=== PATIENT | female | born 1985 | race American Indian/Alaskan Native ===

== ENCOUNTER 2020-12-24 14:55 | Emergency (ER) | payer MEDICAID, OTHER ==
[2020-12-24] MEDS ORDERED: NALOXONE 2 MG/2 ML INJ ONE (15:00)
[2020-12-24] MEDS ORDERED: SODIUM BICARB 8.4% 50 MEQ/50 ML SYRINGE IV ONE (15:00)
[2020-12-24] MEDS ORDERED: EPINEPHrine 1 MG/10 ML SYRINGE ONE (15:00)
[2020-12-24] MEDS ORDERED: DEXTROSE 50% IN WATER (25GM) 50 ML VIAL IV ONE (15:00)
--- NOTE | 2020-12-24 15:04 | Emergency Department Report ---
ED CPR HPI - General Stated Complaint: CA Time Seen by Provider: 12/24/20 14:59 - History of Present Illness Initial Comments: Patient was brought in by ambulance for cardiac arrest. History is obtained from EMS. History cannot be obtained for the patient because she is intubated and CPR is in progress. The significant other called EMS because the patient was found down and unresponsive. The downtime was unknown. She was reportedly last seen about 1300. It is approximately 1445 when the patient arrives. CPR is in progress. EMS had intubated the patient. They had administered epinephrine. They had not administered glucose, Narcan, or any other medications. They did not visualize any sign of trauma at the scene. They did not have any clear history of the patient. - Related Data Previous Rx's Medication Instructions Recorded Last Taken Type HYDROcodone/APAP 10-325 [[place] 1 each PO Q6HR PRN #16 tablet 09/04/13 Unknown Rx 10-325 mg TAB] Ibuprofen [Motrin 800 MG tab] 800 mg PO Q8H PRN #30 tablet 09/04/13 Unknown Rx Allergies Allergy/AdvReac Type Severity Reaction Status Date / Time No Known Allergies Allergy Verified 09/04/13 22:39 ED Review of Systems ROS: Stated complaint: CA Other details as noted in HPI Comment: Unobtainable due to pts medical conditions (Cardiac arrest) ED Past Medical Hx - Past Medical History Hx Headaches / Migraines: Yes Additional medical history: Right ankle injury. cannot be obtained from the patient secondary to cardiac arrest - Surgical History Additional Surgical History: 2 , Cyst removed from neck. cannot be obtained from the patient secondary to cardiac arrest - Family History Family history: other ( cannot be obtained from the patient secondary to cardiac arrest) - Social History Smoking Status: Current Every Day Smoker Substance Use Type: Alcohol, Marijuana, Non Opiate Pain Other Social History: cannot be obtained for the patient secondary to cardiac arrest - Medications Home Medications: Home Medications Medication Instructions Recorded Confirmed Last Taken Type HYDROcodone/APAP 10-325 [[place] 1 each PO Q6HR PRN #16 tablet 09/04/13 Unknown Rx 10-325 mg TAB] Ibuprofen [Motrin 800 MG tab] 800 mg PO Q8H PRN #30 tablet 09/04/13 Unknown Rx ED Physical Exam - General Limitations: Physical Limitation, Other ( cardiac arrest) General appearance: other ( patient is in cardiac arrest with CPR in progress. Orotracheal tube is in place.) - Head Head exam: Present: atraumatic, normal inspection - Eye Eye exam: Present: other ( Pupils are 3 mm to 4 mm and fixed. Gaze is conjugate.). Absent: scleral icterus - ENT ENT exam: Present: other ( Endotracheal tube in place) - Neck Neck exam: Present: other ( trachea midline. No crepitus) - Respiratory Respiratory exam: Present: rhonchi ( bilaterally with back ventilation) - Cardiovascular Cardiovascular Exam: Present: other ( asystole without pulses) - GI/Abdominal GI/Abdominal exam: Present: soft. Absent: distended - Extremities Exam Extremities exam: Present: other ( no visible deformity) - Neurological Exam Neurological exam: Present: other ( unresponsive. GCS 3 T) - Psychiatric Psychiatric exam: Present: other ( unresponsive) - Skin Skin exam: Present: warm, dry ED Course - Reevaluation(s) Reevaluation #1: 12/24/20 15:04 CPR was continued during the entire care in the emergency department. Breath sounds were checked. Patient continued to undergo bag ventilation. Patient was given epinephrine as well as bicarbonate, D50, and Narcan. Glucose was noted to be 60. She did not respond to the amp of D50. She did not respond to Narcan. She did not respond to repeated doses of epinephrine. Patient remained in asystole. Bedside cardiac ultrasound was completed. There was no cardiac activity. Patient had no spontaneous respirations. With an unknown downtime and asystole that has been unresponsive to resuscitation, the patient was pronounced. She was pronounced at 1457 hrs. - Procedure Description Procedures done: Procedure note: Cardiac ultrasound at bedside. Indication: Cardiac arrest, determine cardiac activity. Patient was in supine position. Consent was implied. A curvilinear probe was used to examine the pericardium and cardiac motion in a subxiphoid approach. There was no cardiac activity noted. There was no pericardial effusion. Patient had no complications from the procedure. Critical Care Time: No Critical care attestation.: If time is entered above; I have spent that time in minutes in the direct care of this critically ill patient, excluding procedure time. Critical Care Time: No critical care time. Total CPR time was 12 minutes. ED Disposition Clinical Impression: Cardiac arrest Disposition: 20 Is pt being admited?: No Condition: Stable
== END 2020-12-24 22:38 ==
LOC: ED 14:55
DX: I46.9 Cardiac arrest, cause unspecified (principal); F17.200 Nicotine dependence, unspecified, uncomplicated; F10.20 Alcohol dependence, uncomplicated; F12.90 Cannabis use, unspecified, uncomplicated
CPT/HCPCS: 92950; 99285; J0171; J2310